=== PATIENT | female | born 1990 | race Caucasian/White ===

== ENCOUNTER → 2019-10-13 | Day surgery (SDC) | payer OTHER ==
[2019-10-10 11:04] LABS: BASOPHILS % 0.5 % (0.0-1.0); EOSINOPHILS # (AUTO) 0.1 (0.0-0.4); EOSINOPHILS % 1.6 % (0.0-6.0); HEMATOCRIT 39.3 % (34.2-44.1); HEMOGLOBIN 12.8 g/dL (12.0-16.0); LYMPHOCYTES % 34.2 % (18.0-39.1); MEAN CORPUSCULAR HEMOGLOBIN 30.3 pg (28-32); MEAN CORPUSCULAR HGB CONC 32.6 g/dL (31-35); MEAN CORPUSCULAR VOLUME 93.1 fL (81-99); MONOCYTES # (AUTO) 0.5 (0.2-0.8); MONOCYTES % 9.1 % (4.4-11.3); NEUTROPHILS # (AUTO) 3.1 (2.1-6.9); NEUTROPHILS % 54.3 % (38.7-80.0); PLATELET COUNT 276 x10e3/uL (140-360); RED BLOOD COUNT 4.22 x10e6/uL (3.6-5.1); RED CELL DISTRIBUTION WIDTH 12.9 % (11.7-14.4)
[2019-10-10 11:09] LABS: COLOR,URINE YELLOW (YELLOW)
[2019-10-10 11:10] LABS: BILIRUBIN,URINE NEGATIVE (NEGATIVE); CLARITY,URINE SL CLOUDY (CLEAR); KETONES,URINE NEGATIVE (NEGATIVE); LEUKOCYTE ESTERASE ,URINE NEGATIVE (NEGATIVE); NITRITE,URINE NEGATIVE (NEGATIVE); PROTEIN,URINE DIPSTICK NEGATIVE (NEGATIVE); URINE UROBILINOGEN 0.2 mg/dL (0.2 - 1)
[~2019-10-13] MED LIST: ACETAMINOPHEN 1000 MG/100 ML IV ONE; BUPIVACAINE 0.25% 30ML SDV INJ ONE; DEXAMETHASONE SOD PHOS INJ 4 MG/ML VIAL ONE; EPHEDRINE SULFATE INJ 50 MG/ML VIAL ONE; FENTANYL CITRATE/PF 100MCG/2 ML INJ ONE; FERROUS FUMARA324 MG PO; FISH OIL 1,0001 EAC2 PO; GLYCOPYRROLATE INJ 0.2 MG/ML VIAL ONE; HYDROXYZINE HCL25 MG PO; KETOROLAC TROME10 MG PO; LIDOCAINE HCL 2% LOCAL INJ 5 ML SDV VIAL INJ ONE; MEPERIDINE HCL INJ 25 MG/ML VIAL ONE; MIDAZOLAM HCL 2 MG/2 ML VIAL ONE; MORPHINE SULFATE 2 MG/ML SYR 1ML ONE; MULTI-VITAMIN1 EACH PO; NEOSTIGMINE 1 MG/ML 10ML VIAL ONE; ONDANSETRON HCL INJ 2MG/ML 2ML 2 MG/ML VIAL ONE; PROPOFOL IV EMULSION 10 MG/ML 20 ML VIAL ONE; SEVOFLURANE INHAL SOLN 250 ML PEN BTL ONE; VITAMIN B-121000 MC2 SL; VITAMIN D250 MC1 PO
[2019-10-13 14:00] VITALS: BP 104/68
--- NOTE | 2019-10-13 20:40 | Operative Report ---
DATE OF PROCEDURE: 10/13/2019 SURGEON: Kuldeep Mckee MD PREOPERATIVE DIAGNOSES: Abdominal pain, right ovarian cyst, 5 cm in size. POSTOPERATIVE DIAGNOSES: Abdominal pain, right ovarian cyst, 5 cm in size and small hemoperitoneum. PROCEDURES: Diagnostic laparoscopy, right ovarian cystectomy, and right ovarian biopsy and evacuation of small hemoperitoneum. ANESTHESIA: General with Dr. Aguilera and Ozzy, education assistant. INDICATION FOR OPERATION: The patient is a 29-year-old 3, para 3, last menstrual period October 08, 2019, who presents with severe right lower quadrant pain. She had gone to the [facility] and was found to have a 5 cm simple right ovarian cyst on ultrasound and CT scan, and CT showed normal appendix. She is here for diagnostic scope and right ovarian cystectomy. She also does note to have a Nexplanon in place for contraception. She is therefore taken to the operating room at this time. The patient denies any COVID exposure and her COVID-19 test was negative as well as her test was negative. FINDINGS OF SURGERY: There was 15 to 20 mL of blood in the cul-de-sac. There was no obvious source of bleeding. This was evacuated and irrigated. The left ovary was within normal limits. The uterus was within normal limits. Both tubes were within normal limits. The right ovary was enlarged with a 5 cm cyst. The cyst was drained with clear to [id number] fluid. The ovary was biopsied and the cyst wall was removed, and there was good hemostasis noted afterwards. DESCRIPTION OF PROCEDURE: The patient was taken to the operating room and placed on the table in supine position. General anesthesia was administered. The patient was placed in the lithotomy position. The perineum was prepared and draped in the usual sterile manner as was the abdomen. Pelvic exam revealed a normal size uterus, anteverted with a 5 cm right ovarian cyst. A sponge stick was placed in the vagina after the bladder was drained by in and out catheterization. Then, block bolter mule operator changed gloves and a small incision was made just inferior to the umbilicus in the midline. The Veress needle was inserted through the incision into the peritoneal cavity. Pneumoperitoneum was created by insufflation of 4 L of carbon dioxide gas and a filling pressure of 4 to 6 mmHg. The Veress needle was removed and the trocar was inserted through the incision into the peritoneal cavity. The laparoscope was placed with confirmation of the peritoneal cavity that had been entered. A second trocar was placed in a midline suprapubic incision under direct visualization by laparoscopy and a third trocar was placed in the right lower quadrant under direct visualization by laparoscopy. At this point, the contents of the abdomen and pelvis were visualized with the findings of 15 to 20 mL of blood in the cul-de-sac. The left ovary was within normal limits. The right ovary was enlarged with 5 cm cyst. The uterus was within normal limits and both tubes were within normal limits. Suction senior business analyst was placed and the blood was drained from the cul-de-sac and then irrigation was performed. At this point, a needle was performed and all the clear to yellow orange fluid was suctioned out of the ovary. At this point, a LigaSure was used to make a small incision in the ovary. A small piece of ovarian tissue was biopsied and sent to pathology, and then the cyst wall was grasped with laparoscopic graspers and pulled out and sent to pathology for definitive diagnosis. There were a few small bleeders on the ovary, which were coagulated using the LigaSure instrument and we then irrigated and suctioned the cyst cavity and after finding no evidence of bleeding, we irrigated the cul-de-sac once more because of the previous blood that had been there with no obvious source, and when this was clear, the procedure was deemed terminated. All the air and instruments were removed from the abdomen. The skin incisions were closed with inverted stitches of 4-0 Monocryl suture and the ovarian cyst wall and the ovarian biopsy were sent to pathology for definitive diagnosis. The vaginal sponge stick was removed as well. This completed the procedure. The counts were correct. There were no complications noted. Estimated blood loss was 5 mL for the procedure and 15 to 20 mL from below that was already in the cul-de-sac. The patient tolerated the procedure well and was transferred from the operating room to the recovery room in stable condition. MD BENITO Silva/MARC /[id number]
== END | disposition home or self-care (01) ==
LOC: OR 09:00
PROVIDERS: ATTEND Obstetrics & Gynecology
DX: N83.291 Other ovarian cyst, right side (principal); K66.1 Hemoperitoneum; E53.8 Deficiency of other specified B group vitamins; D64.9 Anemia, unspecified; F43.10 Post-traumatic stress disorder, unspecified; F41.9 Anxiety disorder, unspecified; Z01.812 Encounter for preprocedural laboratory examination; Z11.59 Encounter for screening for other viral diseases
CPT/HCPCS: 36415; 49322; 58662; 81003; 81025; 85025; 87635; 88304; J0131; J1100; J2001; J2175; J2250; J2270; J2405; J2704; J2710; J3010